=== PATIENT | female | born 1995 | race Caucasian/White ===

== ENCOUNTER 2024-07-06 13:10 | Outpatient (CLI) | payer OTHER | END 2024-07-06 13:21 | disposition home or self-care (01) | LOC: PRENATAL 13:10 | PROVIDERS: ATTEND Obstetrics & Gynecology Maternal & Fetal Medicine | DX: O36.80X0 Pregnancy with inconclusive fetal viability, not applicable or unspecified (principal); Z36.82 Encounter for antenatal screening for nuchal translucency; O28.5 Abnormal chromosomal and genetic finding on antenatal screening of mother; Z3A.15 15 weeks gestation of pregnancy ==

== ENCOUNTER 2024-07-23 10:24 | Outpatient (CLI) | payer OTHER | END 2024-07-23 10:27 | disposition home or self-care (01) | LOC: PRENATAL 10:24 | PROVIDERS: ATTEND Obstetrics & Gynecology Maternal & Fetal Medicine | DX: O26.849 Uterine size-date discrepancy, unspecified trimester (principal); O28.5 Abnormal chromosomal and genetic finding on antenatal screening of mother ==

== ENCOUNTER 2024-07-23 10:35 | Outpatient (CLI) | payer OTHER | END 2024-07-23 23:00 | disposition home or self-care (01) | LOC: LAB 10:35 | PROVIDERS: ATTEND Obstetrics & Gynecology Maternal & Fetal Medicine | DX: Z00.00 Encounter for general adult medical examination without abnormal findings (principal) ==

== ENCOUNTER 2024-08-18 12:04 | Outpatient (CLI) | payer OTHER | END 2024-08-18 12:05 | disposition home or self-care (01) | LOC: PRENATAL 12:04 | PROVIDERS: ATTEND Obstetrics & Gynecology Maternal & Fetal Medicine | DX: O44.00 Complete placenta previa NOS or without hemorrhage, unspecified trimester (principal); O28.5 Abnormal chromosomal and genetic finding on antenatal screening of mother; Z3A.21 21 weeks gestation of pregnancy ==

== ENCOUNTER 2024-11-16 07:43 | Outpatient (CLI) | payer OTHER | END 2024-11-16 07:44 | disposition home or self-care (01) | LOC: PRENATAL 07:43 | PROVIDERS: ATTEND Obstetrics & Gynecology Maternal & Fetal Medicine | DX: Z76.1 Encounter for health supervision and care of foundling (principal) ==